=== PATIENT | male | born 2000 | race Two or more races ===

== ENCOUNTER 2020-03-18 15:56 | Emergency (ER) | payer BC, OTHER ==
[~2020-03-18] VITALS: Ht 167.6 cm; Wt 95.3 kg
[2020-03-18 16:22] VITALS: BP 148/88
[2020-03-18] MEDS ORDERED: SERTRALINE HCL 50 MG TAB PO ONE (16:30)
== END 2020-03-18 18:14 | disposition home or self-care (01) ==
LOC: ER 15:56
DX: F41.9 Anxiety disorder, unspecified (principal)

== ENCOUNTER 2020-03-19 05:43 | Emergency (ER) | payer BC ==
[~2020-03-19] VITALS: Ht 172.7 cm; Wt 122.5 kg
[2020-03-19 09:09] LABS: Basophils # (auto) 0 10 ^3/uL (0-0.2); Basophils % (auto) 0.3 % (0.0-2.0); Eosinophils # (auto) 0.2 10 ^3/uL (0-0.8); Eosinophils % (auto) 2.7 % (0.0-7.0); Hemoglobin 14.3 g/dL (13.5-17.5); Lymphocytes # (auto) 1.4 10 ^3/uL (0.4-5.4); Lymphocytes % (auto) 20.1 % (10.0-50.0); Mean Corpuscular Hemoglobin 30.3 pg (28.0-32.0); Mean Corpuscular Hgb Conc. 34.9 g/dL (32.0-36.0); Mean Corpuscular Volume 86.8 fL (80.0-100.0); Monocytes # (auto) 0.7 10 ^3/uL (0-1.3); Monocytes % (auto) 9.9 % (0.0-12.0); Neutrophils # (auto) 4.7 10 ^3/uL (1.6-8.6); Platelet Count (auto) 238 10^3/uL (140-450); Red Blood Cells 4.72 10^6/uL (4.5-5.90); Red Cell Distribution Width 13.6 % (11.8-14.3)
[2020-03-19 09:26] LABS: Calcium 8.8 mg/dL (8.5-10.1); Magnesium 2.5 mg/dL (1.6-2.6); Potassium 4.3 mmol/L (3.5-5.1)
[2020-03-19 09:30] LABS: BUN/Creatinine Ratio 18.8; Bilirubin, Total 0.2 mg/dL (0.2-1.0); Salicylate < 1.7 mg/dL (2.8-20.0); Total Protein 8.1 g/dL (6.4-8.2)
[2020-03-19 09:43] LABS: Acetaminophen < 2.0 ug/mL (10-30)
[2020-03-19 10:00] VITALS: BP 138/94
== END 2020-03-19 11:59 | disposition home or self-care (01) ==
LOC: EDBD 05:43 → EDUNIT# 05:43 → ER 05:43
DX: F20.9 Schizophrenia, unspecified (principal); F19.10 Other psychoactive substance abuse, uncomplicated
CPT/HCPCS: 36415; 80053; 80320; 80329; 83735; 85025

== ENCOUNTER 2024-02-09 10:38 | Emergency (ER) | payer BC, MEDICAID ==
[~2024-02-09] VITALS: Ht 177.8 cm; Wt 139.0 kg
[2024-02-09 11:16] VITALS: BP 146/77; PULSE 98; RESP 18; O2SAT 98
== END 2024-02-09 11:21 | disposition left against medical advice (07) ==
LOC: ER 10:38 → EDBD 10:38 → ER 11:21
DX: R56.9 Unspecified convulsions (principal); Z53.21 Procedure and treatment not carried out due to patient leaving prior to being seen by health care provider

== ENCOUNTER 2024-04-26 13:02 | Inpatient (IN) | payer MEDICAID ==
[~2024-04-26] VITALS: Ht 177.8 cm; Wt 163.2 kg
--- NOTE | 2024-04-26 13:11 | ED.PDOC ---
History of Present Illness HPI Comments 23-year-old male brought by paramedics because of a seizure episode. Patient states that he had 15 seizures prior to calling the paramedics. He also had a seizure in the ambulance while driving to the ER. Patient does have a history of seizures. Has been seen in the ER for similar episode recently. Other than seizure he does have a history of anxiety. Denies any other symptoms. Time Seen by MD: 13:05 Primary Care Provider: Klaus Reviewed Notes: Nurses Notes, Medications, Allergies Allergies: Coded Allergies: No Known Drug Allergy (Verified Allergy, Unknown, 03/18/20) Information Source: Patient, Emergency Med Personnel Mode of Arrival: EMS Severity: Moderate Timing: Hours Duration: Since onset Past Medical History PAST MEDICAL HISTORY: Anxiety, Depression, Schizophrenia, Seizures Surgical History: Denies all surgeries Family History Family History: No family hx of Cancer, No family hx of DM, No family hx of Heart rafi Social History Smoker: Non-Smoker Alcohol: Denies ETOH Use Drugs: Marijuana Lives In: Home Constitutional: denies: chills, diaphoresis, fatigue, fever, malaise, sweats, weakness, others EENTM: denies: blurred vision, double vision, ear bleeding, ear discharge, ear drainage, ear pain, ear ringing, eye pain, eye redness, hearing loss, mouth pain, mouth swelling, nasal discharge, nose bleeding, nose congestion, nose pain, photophobia, tearing, throat pain, throat swelling, voice changes, others Respiratory: denies: cough, hemoptysis, orthopnea, SOB at rest, shortness of breath, SOB with excertion, stridor, wheezing, others Cardiovascular: denies: chest pain, dizzy spells, diaphoresis, Dyspnea on exertion, edema, irregular heart beat, left arm pain, lightheadedness, palpitations, PND, syncope, others Gastrointestinal: denies: abdomen distended, abdominal pain, blood streaked bowels, constipated, diarrhea, dysphagia, difficulty swallowing, hematemesis, melena, nausea, poor appetite, poor fluid intake, rectal bleeding, rectal pain, vomiting, others Genitourinary: denies: burning, dysuria, flank pain, frequency, hematuria, incontinence, penile discharge, penile sore, pain, testicle pain, testicle swelling, urgency, others Neurological: reports: seizure; denies: dizziness, fainting, headache, left sided numbness, left sided weakness, numbness, paresthesia, pre-existing deficit, right sided numbness, right sided weakness, speech problems, tingling, tremors, weakness, others Musculoskeletal: denies: back pain, gout, joint pain, joint swelling, muscle pain, muscle stiffness, neck pain, others Integumetry: denies: bruises, change in color, change in hair/nails, dryness, laceration, lesions, lumps, rash, wounds, others Allergic/Immunocompromised: denies: Difficulty Healing, Frequent Infections, Hives, Itching, others Hematologic/Lymphatic: denies: anemia, blood clots, easy bleeding, easy bruising, swollen glands, others Endocrine: denies: excessive hunger, excessive sweating, excessive thirst, excessive urination, flushing, intolerance to cold, intolerance to heat, unexplained weight gain, unexplained weight loss, others Psychiatric: denies: anxiety, bipolar disorder, depression, hopeless, panic disorder, schizophrenia, sleepless, suicidal, others Physical Exam General Appearance: Moderate Distress HEENT: Normal ENT Inspection, Pharynx Normal, TMs Normal Neck: Full Range of Motion, Non-Tender, Normal, Normal Inspection Respiratory: Chest Non-Tender, Lungs Clear, No Accessory Muscle Use, No Respir atory Distress, Normal Breath Sounds Cardiovascular: No Edema, No JVD, No Murmur, No Gallop, Normal Peripheral Pulses, Regular Rate/Rhythm Breast Exam: Deferred Gastrointestinal: No Organomegaly, Non Tender, No Pulsatile Mass, Normal Bowel Sounds, Soft Genitalia: Deferred Pelvic: Deferred Rectal: Deferred Extremities: No calf tenderness, Normal capillary refill, Normal inspection, Normal range of motion, Non-tender, No pedal edema Musculoskeletal : Apperance: Normal Neurologic: Alert, crew leader/control room operator II-XII nml as Tested, No Motor Deficits, Normal Affect, Normal Mood, No Sensory Deficits Cerebellar Function: NOT DONE Reflexes: NOT DONE Skin: Dry, Normal Color, Warm Peripheral Pulses: 3+ Radial (R), 3+ Radial (L) Lymphatic: No Adenopathy Was a procedure done? Was a procedure done?: No Differential Dx Considerations may include: Seizure Electrolyte imbalance X-Ray, Labs, Meds, VS Patient alert. History of seizures. Vitals stable. Answering all questions. Was given Ativan. Unknown whether it is a true seizure. Possible psychogenic seizure. He is looking for a place to live. print binding worker consultation. Reviewed his history. Explained to the patient. Was told to follow up with his primary care physician. Was told to come back if there is any problem. Time of 1ST Reevaluation: 13:09 Reevaluation 1ST: Improved Patient Education/Counseling: Diagnosis, Treatment, Prognosis, Need For Follow Up Family Education/Counseling: No Family Present Departure 1 Departure Time of Disposition: 13:10 Impression: Primary Impression: Acute anxiety Additional Impression: Seizure Disposition: 01 HOME / SELF CARE / HOMELESS Condition: Good Discharged With: Self Critical Care Note Critical Care Time?: No Stability Stability form required: No Heart Score Heart Score: Heart Score Response (Comments) Value History N/A 0 EKG N/A 0 Age N/A 0 Risk Factors N/A 0 Troponin N/A 0 Total 0 LIUDMILA BLANDON MD Apr 26, 2024 13:11
[2024-04-26] MEDS: SODIUM CHLORIDE 0.9% 1,000 ML IV ONE ×2 (13:30→14:30)
[2024-04-26 14:15] VITALS: PULSE 96; RESP 14; O2SAT 95
[2024-04-26 15:29] LABS: Basophils # (auto) 0.1 10 ^3/uL (0-0.2); Basophils % (auto) 0.6 % (0.0-2.0); Eosinophils # (auto) 0.1 10 ^3/uL (0-0.8); Eosinophils % (auto) 1.6 % (0.0-7.0); Hematocrit 41.3 % (41.0-53.0); Lymphocytes # (auto) 1.4 10 ^3/uL (0.4-5.4); Lymphocytes % (auto) 17.8 % (10.0-50.0); Mean Corpuscular Hemoglobin 27.8 pg (28.0-32.0); Mean Corpuscular Hgb Conc. 33.8 g/dL (32.0-36.0); Mean Corpuscular Volume 82.3 fL (80.0-100.0); Monocytes # (auto) 0.7 10 ^3/uL (0-1.3); Monocytes % (auto) 8.3 % (0.0-12.0); Neutrophils # (auto) 5.8 10 ^3/uL (1.6-8.6); Neutrophils % (auto) 71.7 % (37.0-80.0); Nucleated Red Blood Cells % 0.1 %; Platelet Count (auto) 207 10^3/uL (140-450); Red Blood Cells 5.02 10^6/uL (4.5-5.90); Red Cell Distribution Width 13.8 % (11.8-14.3); White Blood Cell 8.1 10^3/uL (4.4-10.8)
[2024-04-26 15:38] LABS: Chloride 104 mmol/L (98-107); Potassium 4.6 mmol/L (3.5-5.1); Sodium 139 mmol/L (136-145)
[2024-04-26 15:39] LABS: Anion Gap 9 (5-15); Carbon Dioxide 26 mmol/L (20-31)
[2024-04-26 15:45] LABS: Blood Urea Nitrogen 9 mg/dL (9-23); Glucose 98 mg/dL (74-106)
[2024-04-26] MEDS: LORazepam 0.5 MG TAB PO ONE (16:44)
[2024-04-26 19:35] LABS: Urine Bacteria None Seen /hpf (None Seen)
[2024-04-26 19:46] LABS: Urine Blood Negative /uL (Negative); Urine Clarity Clear (Clear); Urine Color Light-Yellow (Yellow); Urine Protein, UAD Negative (Negative); Urine Specific Gravity 1.015 (1.001-1.035); Urine Squamous Epithelial Cell None Seen /hpf (<5); Urine Urobilinogen Normal (Negative); Urine WBC < 1 /HPF (0-3); Urine pH 7.5 (5.0-9.0)
[2024-04-26 19:50] VITALS: RESP 18; O2SAT 98
[2024-04-26] MEDS ORDERED: MORPHINE SULFATE INJ 2 MG/ml SYRG IV PRN (22:30)
[2024-04-26] MEDS ORDERED: LORazepam 2MG/ML-1ML VIAL IV PRN (22:30)
[2024-04-26] MEDS ORDERED: ONDANSETRON HCL 4 MG/2 ML VIAL IV PRN (22:30)
[2024-04-26] MEDS ORDERED: ACETAMINOPHEN 325 MG TAB PO PRN (22:30)
--- NOTE | 2024-04-26 22:30 | DVHHPRES ---
History of Present Illness Resident Creating Document: THERON WILBURN RESIDENT Reason for Visit: Seizures likely to call and abulance History of Present Illness Patient is a 22-year-old male with significant psychiatric history who presented to the ED today via paramedics with a chief complaint of episodes of seizures activities. Patient is a poor historian. He mentioned that he had about 15 seizures and that his current medications are not helping. He is currently on Depakote and oxcarbazepine. He has had many ED visits and the last one prior to [facility] was at [facility]. CT head was grossly unremarkable. Patient also mentioned that homeless and does not want to go back to the streets. I spoke with his brother who mentioned that patient is not homeless he lives at home and the he has psychiatric issues and is difficult to tell him what to do. Will admit the patient. However, patient refused IV line for IV medication. Past medical history: Schizophrenia, bipolar, ADHD. 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 that was surgically repaired Family history: Noncontributory MEDICATION: Depakote and oxcarbazepine Review of Systems Review of Systems Constitutional: Morbidly obese child disheveled, Denies fever no chills no feeling of malaise, looking and shows, HEENT: Denies headache, ear pain, ear discharges, conjunctivitis, nasal discharge throat pain Cardiovascular: Denies chest pain, palpitation, orthopnea, PND, or pedal edema Respiratory: Denies shortness of breath, cough cough, sputum production, hemoptysis, GI: Denies abdominal pain, nausea, vomiting, diarrhea, hematemesis, hematochezia, : Denies frequency, urgency, hematuria, Endocrine: Denies unintentional weight gain or weight loss, feeling of hot flashes, Valdemar: Denies easy bruising, bleeding disorders, epistaxis Musculoskeletal: Denies joint pains, muscle aches Psych: No evidence of depression, leena, suicidal ideation Note: During my assessment of the patient patient had pseudo seizure that lasted less than 10 seconds and he regained consciousness and was able to follow back with conversation. Allergies: Coded Allergies: No Known Drug Allergy (Verified Allergy, Unknown, 03/18/20) Medications Current Medications Medications Dose Ordered Sig/Michael Route Start Time Stop Time Status Last Admin Dose Admin Acetaminophen 650 mg Q6HP PRN PO 04/26/24 22:30 UNV Ondansetron HCl 4 mg Q4HP PRN IV 04/26/24 22:30 UNV Morphine Sulfate 2 mg Q4HPRN PRN IV 04/26/24 22:30 UNV Enoxaparin Sodium 40 mg DAILY SC 04/27/24 10:00 UNV Sodium Chloride 1,000 ml @ 125 mls/hr Q8H IV 04/26/24 22:30 UNV Lorazepam 1 mg Q5MINP PRN IV 04/26/24 22:30 UNV Oxcarbazepine 600 mg TID PO 04/27/24 06:00 UNV Divalproex Sodium 500 mg TID PO 04/27/24 06:00 UNV Exam Vital Signs Vital Signs Date Time Temp Pulse Resp B/P (MAP) Pulse Ox O2 Delivery O2 Flow Rate FiO2 04/26/24 19:50 18 98 Room Air* 0 21 04/26/24 19:45 114 120/75 (90) 04/26/24 17:56 97.9 97.9 Exam General Appearance: morbidly obese male disheveled looking, Alert, Oriented X3, Cooperative, No acute distress HEENT: Atraumatic, PERRLA, EOMI, Mucous membrane moist/pink Respiratory: Clear to auscultation, Normal air movement Cardiovascular: Regular rate, Normal S1, Normal S2, No murmurs, no chest wall tenderness Abdominal: NO distention, no tenderness, bowel sounds present, no scars noted Extremities: No clubbing, No cyanosis, No edema, Normal pulses, No tenderness/swelling Skin: No rashes, No breakdown, No significant lesion Neuro: Normal gait, Normal speech, Strength at 5/5 X4 ext, Normal tone, Sen sation intact, Cranial nerves 3-12 NL, Reflexes 2+ Psych/Mental Status: Mental status NL, Mood NL Labs/Xrays Labs Test 04/26/24 15:20 04/26/24 15:00 Range/Units White Blood Count 8.1 4.4-10.8 10^3/uL Red Blood Count 5.02 4.5-5.90 10^6/uL Hemoglobin 14.0 13.5-17.5 g/dL Hematocrit 41.3 41.0-53.0 % Mean Corpuscular Volume 82.3 80.0-100.0 fL Mean Corpuscular Hemoglobin 27.8 L 28.0-32.0 pg Mean Corpuscular Hemoglobin Concent 33.8 32.0-36.0 g/dL Red Cell Distribution Width 13.8 11.8-14.3 % Platelet Count 207 140-450 10^3/uL Mean Platelet Volume 8.3 6.9-10.8 fL Neutrophils (%) (Auto) 71.7 37.0-80.0 % Lymphocytes (%) (Auto) 17.8 10.0-50.0 % Monocytes (%) (Auto) 8.3 0.0-12.0 % Eosinophils (%) (Auto) 1.6 0.0-7.0 % Basophils (%) (Auto) 0.6 0.0-2.0 % Neutrophils # (Auto) 5.8 1.6-8.6 10 ^3/uL Lymphocytes # (Auto) 1.4 0.4-5.4 10 ^3/uL Monocytes # (Auto) 0.7 0-1.3 10 ^3/uL Eosinophils # (Auto) 0.1 0-0.8 10 ^3/uL Basophils # (Auto) 0.1 0-0.2 10 ^3/uL Nucleated Red Blood Cells 0.1 % Sodium Level 139 136-145 mmol/L Potassium Level 4.6 3.5-5.1 mmol/L Chloride Level 104 98-107 mmol/L Carbon Dioxide Level 26 20-31 mmol/L Anion Gap 9 5-15 Blood Urea Nitrogen 9 9-23 mg/dL Creatinine 0.82 0.700-1.30 mg/dL Glomerular Filtration Rate Calc 127 >90 mL/min BUN/Creatinine Ratio 11.0 10.0-20.0 Serum Glucose 98 74-106 mg/dL Calcium Level 10.0 8.7-10.4 mg/dL Urine Color Light-yellow Yellow Urine Clarity Clear Clear Urine pH 7.5 5.0-9.0 Urine Specific [place] 1.015 1.001-1.035 Urine Protein Negative Negative Urine Ketones Negative Negative Urine Blood Negative Negative /uL Urine Nitrite Negative Negative Urine Bilirubin Negative Negative Urine Urobilinogen Normal Negative mg/dL Urine Leukocyte Esterase Negative Negative /uL Urine RBC <1 0 - 3 /hpf Urine Microscopic WBC < 1 0-3 /HPF Urine Squamous Epithelial Cells None seen <5 /hpf Urine Bacteria None seen None Seen /hpf Urine Glucose Normal Normal mg/dL Assessment/Plan Assessment/Plan Assessment Breakthrough seizures versus pseudoseizures Elevated creatinine kinase which point towards real seizure activities Schizophrenia Bipolar ADHD Depression Morbidly obese Noncompliant Plan Continue oral antiseizure medications oxcarbazepine and Depakote Neurology consult Noncompliant, Patient refusing IV placement. Therefore, could not give a loading dose [facility] Social service consult Goal of care discussed for more than 45 minutes: Full code Case and plan discussed with Dr. Pike Plan discussed with: Patient, Other (Brother) My Orders Orders - THERON WILBURN RESIDENT Procedure Category Date Status Time Admit ADMIT 04/26/24 Transmitted 22:21 Code Status CODE 04/26/24 Transmitted 22:21 Vital Signs SHANTANU 04/26/24 In Process 22:21 Review Orders With SHANTANU 04/26/24 In Process Adm.Md 22:21 Npo (Nothing By DIET 04/27/24 Transmitted Mouth) Diet Breakfast Acetaminophen Tablet PHA 04/26/24 Logged (Tylenol Tablet) 22:30 Notify Md Of Changes SHANTANU 04/26/24 In Process From Base 22:21 Advance Directive SHANTANU 04/26/24 In Process 22:21 Patient Condition ORDERS 04/26/24 Transmitted 22:21 Allergies SHANTANU 04/26/24 In Process 22:21 Ondansetron Hcl PHA 04/26/24 Logged (Zofran) 22:30 Drug Screen LAB 04/26/24 Logged 22:21 Morphine Sulfate PHA 04/26/24 Logged Injection 22:30 Enoxaparin Sodium PHA 04/27/24 Logged (Lovenox) 10:00 Oxygen By Nasal RT 04/26/24 Transmitted Cannula 22:21 Director Nursing Service For SHANTANU 04/26/24 In Process 24 Hours 22:21 Emergency Dysrhythmia SHANTANU 04/26/24 In Process Protocol 22:21 Rhythm Strips Once SHANTANU 04/26/24 In Process Every Shift 22:21 Creatine Kinase LAB 04/26/24 Logged 22:21 Complete Blood Count LAB 04/27/24 Verified 04:00 Comprehensive LAB 04/27/24 Verified Metabolic Panel 04:00 * Neurology Consult CONS 04/26/24 Transmitted 22:21 Sodium Chloride 0.9% PHA 04/26/24 Logged 22:30 Lorazepam 2mg/Ml Inj PHA 04/26/24 Logged (Ativan Inj) 22:30 Oxcarbazepine Tablet PHA 04/27/24 Logged (Trileptal Tablet) 06:[address] Tablet PHA 04/27/24 Logged (Depakote "Dr" Tabl 06:[address] 04/26/24 Logged 22:27 Date of Service: Apr 26, 2024 Billing Provider: ТАТЬЯНА PIKE MD Common Visit Codes: [id number] INP/OBS CARE (HIGH) THERON WILBURN RESIDENT Apr 26, 2024 22:30 ТАТЬЯНА PIKE MD Apr 27, 2024 18:48
[2024-04-26 22:55] LABS: Amphetamine Screen, Urine Neg (NEGATIVE); Barbiturate Scree,Urine Neg (NEGATIVE); Benzodiazephine Screen, Urine Neg (NEGATIVE); Cannabinoid Screen, Urine Neg (NEGATIVE); Cocaine Screen, Urine Neg (NEGATIVE); Opiate Scree,Urine Neg (NEGATIVE); Phencyclidine Screen, Urine Neg (NEGATIVE)
--- NOTE | 2024-04-26 23:16 | DVH ---
CT HEAD WITHOUT CONTRAST INDICATION: rule out stroke COMPARISON: None TECHNIQUE: CT of the head without intravenous contrast. RADIATION DOSE: CTDIvol: mGy, DLP: mGy*cm FINDINGS: There is no evidence of intracranial hemorrhage, infarct, extra-axial collection, mass effect, midli ne shift, herniation or hydrocephalus. The ventricles, sulci and cisterns are normal. The freeman-white differentiation is normal. Visualized paranasal sinuses and mastoid air cells are clear. Soft tissues and osseous structures are unremarkable. IMPRESSION: No intracranial abnormality.
[2024-04-26 23:59] VITALS: BP 138/79; PULSE 88; RESP 20; TEMP 97.6; O2SAT 95
[2024-04-27] MEDS ORDERED: OXCA600T40 PO (00:19)
[2024-04-27] MEDS ORDERED: DIVA500T13 PO (00:19)
[2024-04-27 05:00] VITALS: BP 122/68; PULSE 72; RESP 18; TEMP 97.8; O2SAT 96
[2024-04-27 05:18] LABS: Basophils # (auto) 0 10 ^3/uL (0-0.2); Basophils % (auto) 0.5 % (0.0-2.0); Eosinophils # (auto) 0.2 10 ^3/uL (0-0.8); Eosinophils % (auto) 3.8 % (0.0-7.0); Hematocrit 39.3 % (41.0-53.0); Hemoglobin 13.6 g/dL (13.5-17.5); Lymphocytes # (auto) 1.9 10 ^3/uL (0.4-5.4); Lymphocytes % (auto) 29.9 % (10.0-50.0); Mean Corpuscular Hemoglobin 28.8 pg (28.0-32.0); Mean Corpuscular Hgb Conc. 34.5 g/dL (32.0-36.0); Mean Corpuscular Volume 83.5 fL (80.0-100.0); Monocytes # (auto) 0.6 10 ^3/uL (0-1.3); Monocytes % (auto) 9.9 % (0.0-12.0); Neutrophils # (auto) 3.6 10 ^3/uL (1.6-8.6); Neutrophils % (auto) 55.9 % (37.0-80.0); Nucleated Red Blood Cells % 0.2 %; Platelet Count (auto) 190 10^3/uL (140-450); Red Blood Cells 4.71 10^6/uL (4.5-5.90); White Blood Cell 6.4 10^3/uL (4.4-10.8)
[2024-04-27 05:33] LABS: Alanine Aminotransferase 21 U/L (7-40); Albumin 4.4 g/dL (3.2-4.8); Alkaline Phosphatase 80 U/L (46-116); Anion Gap 9 (5-15); BUN/Creatinine Ratio 11.9 (10.0-20.0); Blood Urea Nitrogen 10 mg/dL (9-23); Calcium 9.6 mg/dL (8.7-10.4); Carbon Dioxide 25 mmol/L (20-31); Chloride 106 mmol/L (98-107); Sodium 140 mmol/L (136-145); Total Protein 7.5 g/dL (5.7-8.2)
[2024-04-27] MEDS: OXcarbazepine 300 MG TAB PO SCH (05:33)
[2024-04-27 05:34] LABS: Aspartate Aminotransferase 16 U/L (13-40); Bilirubin, Total 0.2 mg/dL (0.2-1.0); Creatine Kinase IFCC 218 U/L (46-171); Glucose 123 mg/dL (74-106)
[2024-04-27] MEDS: SODIUM CHLORIDE 0.9% 1,000 ML IV SCH (06:30)
[2024-04-27 08:00] VITALS: PULSE 100; RESP 16; O2SAT 96
[2024-04-27 09:00] VITALS: BP 114/78; PULSE 70; RESP 16; TEMP 97.7; O2SAT 96
[2024-04-27] MEDS: ENOXAPARIN SOD 40 MG/0.4 ML SYRINGE SC SCH (10:00)
--- NOTE | 2024-04-27 10:46 | DVHPNRES ---
Progress Note Objective vital signs Vital Sign Date Time Temp Pulse Resp B/P (MAP) Pulse Ox O2 Delivery O2 Flow Rate FiO2 04/27/24 05:00 97.8 72 18 122/68 (86) 96 97.8 04/26/24 23:59 Room Air* 0 21 Total Intake and Output 04/26/24 04/26/24 04/27/24 15:00 23:00 07:00 Intake Total 0 ml Balance 0 ml medications Current Medications Medications Dose Ordered Sig/Michael Route Start Time Stop Time Status Last Admin Dose Admin Acetaminophen 650 mg Q6HP PRN PO 04/26/24 22:30 Ondansetron HCl 4 mg Q4HP PRN IV 04/26/24 22:30 Morphine Sulfate 2 mg Q4HPRN PRN IV 04/26/24 22:30 Enoxaparin Sodium 40 mg DAILY SC 04/27/24 10:00 Sodium Chloride 1,000 ml @ 125 mls/hr Q8H IV 04/26/24 22:30 Lorazepam 1 mg Q5MINP PRN IV 04/26/24 22:30 Oxcarbazepine 600 mg TID PO 04/27/24 06:00 04/27/24 05:33 600 MG Divalproex Sodium 500 mg TID PO 04/27/24 06:00 04/27/24 05:33 500 MG laboratory and microbiology Laboratory Tests 04/27/24 04:23 Test 04/27/24 04:23 Range/Units Serum Glucose 123 H 74-106 mg/dL DANNY PARKER RESIDENT Apr 27, 2024 10:46
--- NOTE | 2024-04-27 14:38 | DVHDSRES ---
Discharge Summary Date of Admission Resident Creating Document: DANNY PARKER RESIDENT Apr 26, 2024 at 22:21 Date of Discharge: Apr 27, 2024 Admitting Diagnosis breakthrough seizure Labs/Diagnostic Data: Laboratory Results Test 04/27/24 04:23 04/26/24 15:00 White Blood Count 6.4 10^3/uL (4.4-10.8) Red Blood Count 4.71 10^6/uL (4.5-5.90) Hemoglobin 13.6 g/dL (13.5-17.5) Hematocrit 39.3 % (41.0-53.0) Mean Corpuscular Volume 83.5 fL (80.0-100.0) Mean Corpuscular Hemoglobin 28.8 pg (28.0-32.0) Mean Corpuscular Hemoglobin Concent 34.5 g/dL (32.0-36.0) Red Cell Distribution Width 14.0 % (11.8-14.3) Platelet Count 190 10^3/uL (140-450) Mean Platelet Volume 8.3 fL (6.9-10.8) Neutrophils (%) (Auto) 55.9 % (37.0-80.0) Lymphocytes (%) (Auto) 29.9 % (10.0-50.0) Monocytes (%) (Auto) 9.9 % (0.0-12.0) Eosinophils (%) (Auto) 3.8 % (0.0-7.0) Basophils (%) (Auto) 0.5 % (0.0-2.0) Neutrophils # (Auto) 3.6 10 ^3/uL (1.6-8.6) Lymphocytes # (Auto) 1.9 10 ^3/uL (0.4-5.4) Monocytes # (Auto) 0.6 10 ^3/uL (0-1.3) Eosinophils # (Auto) 0.2 10 ^3/uL (0-0.8) Basophils # (Auto) 0 10 ^3/uL (0-0.2) Nucleated Red Blood Cells 0.2 % Sodium Level 140 mmol/L (136-145) Potassium Level 4.0 mmol/L (3.5-5.1) Chloride Level 106 mmol/L (98-107) Carbon Dioxide Level 25 mmol/L (20-31) Anion Gap 9 (5-15) Blood Urea Nitrogen 10 mg/dL (9-23) Creatinine 0.84 mg/dL (0.700-1.30) Glomerular Filtration Rate Calc 126 mL/min (>90) BUN/Creatinine Ratio 11.9 (10.0-20.0) Serum Glucose 123 mg/dL (74-106) Calcium Level 9.6 mg/dL (8.7-10.4) Total Bilirubin 0.2 mg/dL (0.2-1.0) Aspartate Amino Transferase (AST) 16 U/L (13-40) Alanine Aminotransferase (ALT) 21 U/L (7-40) Alkaline Phosphatase 80 U/L (46-116) Creatine Kinase 218 U/L (46-171) Total Protein 7.5 g/dL (5.7-8.2) Albumin 4.4 g/dL (3.2-4.8) Urine Color Light-yellow (Yellow) Urine Clarity Clear (Clear) Urine pH 7.5 (5.0-9.0) Urine Specific [place] 1.015 (1.001-1.035) Urine Protein Negative (Negative) Urine Ketones Negative (Negative) Urine Blood Negative /uL (Negative) Urine Nitrite Negative (Negative) Urine Bilirubin Negative (Negative) Urine Urobilinogen Normal mg/dL (Negative) Urine Leukocyte Esterase Negative /uL (Negative) Urine RBC <1 /hpf (0 - 3) Urine Microscopic WBC < 1 /HPF (0-3) Urine Squamous Epithelial Cells None seen /hpf (<5) Urine Bacteria None seen /hpf (None Seen) Urine Glucose Normal mg/dL (Normal) Urine Opiates Screen Neg (NEGATIVE) Urine Fentanyl Screen Neg (NEGATIVE) Urine Barbiturates Screen Neg (NEGATIVE) Urine Phencyclidine Screen Neg (NEGATIVE) Urine Amphetamines Screen Neg (NEGATIVE) Urine Benzodiazepines Screen Neg (NEGATIVE) Urine Cocaine Screen Neg (NEGATIVE) Urine Cannabinoids Screen Neg (NEGATIVE) Other Laboratory Tests 04/27/24 04:23 Brief Hx & Hospital Course: The patient, a 23-year-old male with a history of schizophrenia, bipolar disorder, ADHD, and depression, presented via EMS for evaluation of recurrent seizure-like episodes. He reported having approximately 15 seizures and expressed concern that his current medications (oxcarbazepine and divalproex sodium) were not effective. He has a history of medication noncompliance and homelessness. Neurological workup was initiated, and the differential included breakthrough seizures versus pseudoseizures. Elevated creatinine kinase levels suggested true seizure activity. The patient was admitted for further monitoring, but he refused IV access, precluding administration of a loading dose of Keppra. emergency services professional were consulted due to concerns regarding homelessness and medication adherence. Despite ongoing evaluation and discussion of his treatment plan, the patient eloped from the hospital before completion of medical care. General Appearance: morbidly obese male disheveled looking, Alert, Oriented X3, Cooperative, No acute distress HEENT: Atraumatic, PERRLA, EOMI, Mucous membrane moist/pink Respiratory: Clear to auscultation, Normal air movement Cardiovascular: Regular rate, Normal S1, Normal S2, No murmurs, no chest wall tenderness Abdominal: NO distention, no tenderness, bowel sounds present, no scars noted Extremities: No clubbing, No cyanosis, No edema, Normal pulses, No tenderness/swelling Skin: No rashes, No breakdown, No significant lesion Neuro: Normal gait, Normal speech, Strength at 5/5 X4 ext, Normal tone, Sensation intact, Cranial nerves 3-12 NL, Reflexes 2+ Psych/Mental Status: Mental status NL, Mood NL Case discussed with Dr Duff Operations or Procedures CT HEAD WITHOUT CONTRAST INDICATION: rule out stroke COMPARISON: None TECHNIQUE: CT of the head without intravenous contrast. RADIATION DOSE: CTDIvol: mGy, DLP: mGy*cm FINDINGS: There is no evidence of intracranial hemorrhage, infarct, extra-axial collection, mass effect, midline shift, herniation or hydrocephalus. The ventricles, sulci and cisterns are normal. The freeman-white differentiation is normal. Visualized paranasal sinuses and mastoid air cells are clear. Soft tissues and osseous structures are unremarkable. IMPRESSION: No intracranial abnormality. Condition at Discharge: Stable Final Diagnosis/Problems List Breakthrough seizures versus pseudoseizures Elevated creatinine kinase which point towards real seizure activities Schizophrenia Bipolar ADHD Depression Morbidly obese Noncompliant Discharge Disposition: Eloped Discharge Statement: "Patient was advised to return to the ER or call 911 if any headaches, dizziness, shortness of breath, chest pain, abdominal pain, bleeding, fevers, or worsening of medical condition. Patient was counseled about treatment plan, medications, possible side effects, patientverbalized understanding. All questions were answered to the best of my ability. This discharge took greater then 30 minutes in planning, reviewing documentation, counseling the patient, and discussing with other team members." ASSESSMENT ASSESSMENT Assessment DANNY PARKER RESIDENT Apr 27, 2024 14:37
== END 2024-04-27 12:18 | disposition left against medical advice (07) | DRG 53 ==
LOC: EDBD 13:02 → ER 13:02 → EDUNIT# 13:02 → OVERFLOW 22:21 → TELE-WESTW 23:40 → OVERFLOW 23:58 → TELE-WESTW 23:59
PROVIDERS: ADMIT Internal Medicine; ATTEND Internal Medicine
DX: G40.802 Other epilepsy, not intractable, without status epilepticus (principal); Z68.43 Body mass index [BMI] 50.0-59.9, adult; E66.01 Morbid (severe) obesity due to excess calories; F20.9 Schizophrenia, unspecified; F41.9 Anxiety disorder, unspecified; F31.9 Bipolar disorder, unspecified; F90.9 Attention-deficit hyperactivity disorder, unspecified type; Z91.199 Patient's noncompliance with other medical treatment and regimen due to unspecified reason; Z53.21 Procedure and treatment not carried out due to patient leaving prior to being seen by health care provider
CPT/HCPCS: 36415; 70450; 80048; 80053; 80307; 81001; 82550; 85025; G0378

== ENCOUNTER 2024-04-27 19:11 | Emergency (ER) | payer MEDICAID ==
[~2024-04-27] VITALS: Ht 177.8 cm; Wt 156.8 kg
[~2024-04-27 19:11] MED LIST: DIVA500T13 PO; OXCA600T40 PO
[2024-04-27 19:22] VITALS: BP 131/79; PULSE 104; RESP 18; TEMP 98; O2SAT 96
--- NOTE | 2024-04-27 21:02 | ED.PDOC ---
History of Present Illness HPI Comments 23-year-old male came to ER. for dizziness. Patient is homeless, was just discharged few hours ago, for anxiety and seizure disorder. While waiting for his ride, patient apparently felt dizzy, lightheaded and had a seizure like episode. Chief Complaint: Dizziness Time Seen by MD: 21:01 Primary Care Provider: Klaus Reviewed Notes: Nurses Notes Allergies: Coded Allergies: No Known Drug Allergy (Verified Allergy, Unknown, 03/18/20) Home Meds Reported Medications Oxcarbazepine (OXTELLAR XR) 600 Mg Tab, 3 TAB PO DAILY 04/27/24 Divalproex Sodium (Divalproex Sodium) 500 Mg Tab, 3 TAB PO DAILY 04/27/24 Information Source: Patient Mode of Arrival: Wheelchair Severity: Moderate Timing: Minutes Duration: Since onset, Minutes Past Medical History PAST MEDICAL HISTORY: Anxiety, Depression, Schizophrenia, Seizures Surgical History: Denies all surgeries Family History Family History: No family hx of Cancer, No family hx of DM, No family hx of Heart rafi Social History Smoker: Non-Smoker Alcohol: Denies ETOH Use Drugs: Denies Drug Use Lives In: Homeless Constitutional: denies: chills, diaphoresis, fatigue, fever, malaise, sweats, weakness, others EENTM: denies: blurred vision, double vision, ear bleeding, ear discharge, ear drainage, ear pain, ear ringing, eye pain, eye redness, hearing loss, mouth pain, mouth swelling, nasal discharge, nose bleeding, nose congestion, nose pain, photophobia, tearing, throat pain, throat swelling, voice changes, others Respiratory: denies: cough, hemoptysis, orthopnea, SOB at rest, shortness of breath, SOB with excertion, stridor, wheezing, others Cardiovascular: denies: chest pain, dizzy spells, diaphoresis, Dyspnea on exertion, edema, irregular heart beat, left arm pain, lightheadedness, palpitations, PND, syncope, others Gastrointestinal: denies: abdomen distended, abdominal pain, blood streaked bowels, constipated, diarrhea, dysphagia, difficulty swallowing, hematemesis, melena, nausea, poor appetite, poor fluid intake, rectal bleeding, rectal pain, vomiting, others Genitourinary: denies: burning, dysuria, flank pain, frequency, hematuria, incontinence, penile discharge, penile sore, pain, testicle pain, testicle swelling, urgency, others Neurological: reports: dizziness, fainting, seizure; denies: headache, left sided numbness, left sided weakness, numbness, paresthesia, pre-existing deficit, right sided numbness, right sided weakness, speech problems, tingling, tremors, weakness, others Musculoskeletal: denies: back pain, gout, joint pain, joint swelling, muscle pain, muscle stiffness, neck pain, others Integumetry: denies: bruises, change in color, change in hair/nails, dryness, laceration, lesions, lumps, rash, wounds, others Allergic/Immunocompromised: denies: Difficulty Healing, Frequent Infections, Hives, Itching, others Hematologic/Lymphatic: denies: anemia, blood clots, easy bleeding, easy bruising, swollen glands, others Endocrine: denies: excessive hunger, excessive sweating, excessive thirst, excessive urination, flushing, intolerance to cold, intolerance to heat, unexplained weight gain, unexplained weight loss, others Psychiatric: denies: anxiety, bipolar disorder, depression, hopeless, panic disorder, schizophrenia, sleepless, suicidal, others Physical Exam General Appearance: No Apparent Distress, Normal HEENT: Normal ENT Inspection, Pharynx Normal, TMs Normal Neck: Full Range of Motion, Non-Tender, Normal, Normal Inspection Respiratory: Chest Non-Tender, Lungs Clear, No Accessory Muscle Use, No Respiratory Distress, Normal Breath Sounds Cardiovascular: No Edema, No JVD, No Murmur, No Gallop, Normal Peripheral Pulses, Regular Rate/Rhythm Breast Exam: Deferred Gastrointestinal: No Organomegaly, Non Tender, No Pulsatile Mass, Normal Bowel Sounds, Soft Genitalia: Deferred Pelvic: Deferred Rectal: Deferred Extremities: No calf tenderness, Normal capillary refill, Normal inspection, Normal range of motion, Non-tender, No pedal edema Musculoskeletal : Apperance: Normal Neurologic: Alert, tension worker II-XII nml as Tested, No Motor Deficits, Normal Affect, Normal Mood, No Sensory Deficits Cerebellar Function: Normal Reflexes: Normal Skin: Dry, Normal Color, Warm Lymphatic: No Adenopathy Was a procedure done? Was a procedure done?: No Differential Dx Considerations may include: Anemia, electrolyte imbalance, anxiety, seizure disorder, homeless X-Ray, Labs, Meds, VS Vital Signs Date Time Temp Pulse Resp B/P (MAP) Pulse Ox O2 Delivery O2 Flow Rate FiO2 04/27/24 19:22 98.0 104 18 131/79 (96) 96 98.0 Lab Test 04/27/24 19:27 Range/Units POC Glucose 106 70-106 mg/dl Time of 1ST Reevaluation: 20:57 Reevaluation 1ST: Unchanged Patient Education/Counseling: Diagnosis, Treatment Family Education/Counseling: No Family Present Departure 1 Departure Time of Disposition: 23:13 (Patient has returned to baseline. We will discharge patient home with outpatient follow up) Impression: Primary Impression: Seizure-like activity Disposition: HOME / SELF CARE / HOMELESS Condition: Stable Additional Instructions: Please follow up with the regular doctors continue to take your regular medications. Discharged With: Self Critical Care Note Critical Care Time?: No Stability Stability form required: No Heart Score Heart Score: Heart Score Response (Comments) Value History N/A 0 EKG N/A 0 Age N/A 0 Risk Factors N/A 0 Troponin N/A 0 Total 0 I personally scribed for ROME MAYFIELD MD ([email or web address]) on 04/27/24 at 21:02. Electronically submitted by Alex Coburn ([email or web address]). ROME MAYFIELD MD Apr 27, 2024 21:02
== END 2024-04-27 23:23 | disposition home or self-care (01) ==
LOC: ER 19:11
DX: G40.89 Other seizures (principal); F41.9 Anxiety disorder, unspecified; F20.9 Schizophrenia, unspecified; Z79.899 Other long term (current) drug therapy
CPT/HCPCS: 82947; 82962